=== PATIENT | female | born 1965 | race Caucasian/White ===

== ENCOUNTER 2020-02-18 09:56 | Emergency (ER) | payer SELFPAY ==
[~2020-02-18] VITALS: Ht 167.6 cm; Wt 57.2 kg
[~2020-02-18 09:56] MED LIST: BACLOFEN20 MG PO; CLINDAMYCIN HC150 MG PO; CLONAZEPAM0.5 MG PO; CYMBALTA60 MG PO; IBUPROFEN800 MG PO; LEVOTHYROXINE150 MCG PO; NORCO 5-325 TA1 EACH PO; OMEPRAZOLE20 MG PO; OXYCODONE-ACET1 EAC3 PO; PRAVASTATIN SOD20 MG PO; PROVIGIL200 MG PO; TIROSINT125 MCG PO; VITAMIN D31000 UNI1 PO
[2020-02-18] MEDS ORDERED: OXYCODONE HCL5 MG PO (12:33)
== END 2020-02-18 12:58 | disposition home or self-care (01) ==
LOC: ED 09:56
DX: S93.401A Sprain of unspecified ligament of right ankle, initial encounter (principal); S39.011A Strain of muscle, fascia and tendon of abdomen, initial encounter; X58.XXXA Exposure to other specified factors, initial encounter; E03.9 Hypothyroidism, unspecified; Z87.891 Personal history of nicotine dependence; Z88.8 Allergy status to other drugs, medicaments and biological substances; Z91.040 Latex allergy status; Z88.5 Allergy status to narcotic agent; Z91.041 Radiographic dye allergy status
CPT/HCPCS: 73610; 74176; 80053; 81001; 83690; 85025; 99284-25